=== PATIENT | female | born 1940 | race Hispanic/Latino ===

== ENCOUNTER 2016-11-11 10:41 | Emergency (ER) | payer MEDICARE, MEDICAID, OTHER ==
[2016-11-11 10:51] VITALS: BMI 21.2
[2016-11-11 10:53] VITALS: BP 120/59; PULSE 87; RESP 18; TEMP 97.7; O2SAT 95
--- NOTE | 2016-11-11 11:22 | ED PDOC ---
HPI: Eye Injury/Pain Time Seen by Provider: 11/11/16 11:19 Chief Complaint (Provider): eye discharge History Per: Patient (76 y/o here with increased right eye drainage. Has h/o ectropian and has followed with ophthalmology. Denies any prululent discharge. Does not use contact lens but has glasses.) Past Medical History Reviewed: Historical Data, Nursing Documentation, Vital Signs Vital Signs: Last Vital Signs Temp 97.7 F 11/11/16 10:51 Pulse 87 11/11/16 10:51 Resp 18 11/11/16 10:51 BP 120/59 L 11/11/16 10:51 Pulse Ox 95 11/11/16 10:51 - Family History Family History: States: No Known Family Hx - Home Medications Home Medications: Ambulatory Orders Medication Instructions Recorded Cephalexin [cephalexin] 500 mg PO QID #20 cap 08/24/15 Erythromycin 0.5% [Ilytocin] 0.5 gm RIGHTEYE BID #1 tube 11/11/16 Glycerin/Propylene Glycol 1 - 2 drop BOTHEYES TID PRN #1 11/11/16 [Artificial Tears Drops] bottle - Allergies Allergies/Adverse Reactions: Allergies Allergy/AdvReac Type Severity Reaction Status Date / Time No Known Allergies Allergy Verified 10/07/14 13:07 Review of Systems ROS Statement: Except As Marked, All Systems Reviewed And Found Negative Eyes: Positive for: Other (eye discharge) Physical Exam - Reviewed Nursing Documentation Reviewed: Yes Vital Signs Reviewed: Yes (visual acuity 20/30 L 20/30 R 20/30 bilate (without glasses)) - Physical Exam Appears: Positive for: Well, Non-toxic, No Acute Distress Head Exam: Positive for: ATRAUMATIC, NORMAL INSPECTION, NORMOCEPHALIC Skin: Positive for: Normal Color, Warm, DRY Eye Exam: Positive for: EOMI, PERRL. Negative for: Normal appearance (right lower eyelid ectropion; ), Conjunctival injection ENT: Positive for: Normal ENT Inspection Neck: Positive for: Normal, Painless ROM Cardiovascular/Chest: Positive for: Regular Rate, Rhythm Respiratory: Positive for: CNT, Normal Breath Sounds Gastrointestinal/Abdominal: Positive for: Normal Exam, Bowel Sounds, Soft Back: Positive for: Normal Inspection Extremity: Positive for: Normal ROM Neurologic/Psych: Positive for: Alert, Oriented - ECG O2 Sat by Pulse Oximetry: 95 - Progress ED Course And Treament: tonopen: right eye Disposition - Clinical Impression Clinical Impression: Ectropion - Patient ED Disposition Is Patient to be Admitted: No - Disposition Referrals: Josh Pozo MD [Staff Provider] - Disposition: Routine/Home Disposition Time: 11:23 Condition: FAIR Prescriptions: Erythromycin 0.5% [Ilytocin] 0.5 gm RIGHTEYE BID #1 tube Glycerin/Propylene Glycol [Artificial Tears Drops] 1 - 2 drop BOTHEYES TID PRN # 1 bottle PRN Reason: Dry Eyes Instructions: Blepharitis (ED)
== END 2016-11-11 11:30 | disposition home or self-care (01) ==
LOC: H.ER 10:41
DX: H02.102 Unspecified ectropion of right lower eyelid (principal)

== ENCOUNTER 2017-02-21 10:11 | Emergency (ER) | payer MEDICARE, OTHER ==
[2017-02-21 10:12] VITALS: BMI 21.2
[2017-02-21 10:17] VITALS: BP 116/79; PULSE 84; RESP 20; TEMP 98.6; O2SAT 96
--- NOTE | 2017-02-21 11:05 | ED PDOC ---
HPI: General Adult Time Seen by Provider: 02/21/17 10:30 Chief Complaint (Nursing): Lower Extremity Problem/Injury History Per: Patient Additional Complaint(s): Pt. states for the past week she's had painful warts on the bottom of her feet greatest on the L foot. Denies trauma, fever, numbness, tingling, other injury. Past Medical History Reviewed: Historical Data, Nursing Documentation, Vital Signs Vital Signs: Last Vital Signs Temp 98.6 F 02/21/17 10:16 Pulse 84 02/21/17 10:16 Resp 20 02/21/17 10:16 BP 116/79 02/21/17 10:16 Pulse Ox 96 02/21/17 11:05 - Medical History PMH: Pneumonia - Family History Family History: States: No Known Family Hx - Home Medications Home Medications: Ambulatory Orders Medication Instructions Recorded Cephalexin [cephalexin] 500 mg PO QID #20 cap 08/24/15 Erythromycin 0.5% [Ilytocin] 0.5 gm RIGHTEYE BID #1 tube 11/11/16 Glycerin/Propylene Glycol 1 - 2 drop BOTHEYES TID PRN #1 11/11/16 [Artificial Tears Drops] bottle - Allergies Allergies/Adverse Reactions: Allergies Allergy/AdvReac Type Severity Reaction Status Date / Time No Known Allergies Allergy Verified 10/07/14 13:07 Review of Systems ROS Statement: Except As Marked, All Systems Reviewed And Found Negative Musculoskeletal: Positive for: Foot Pain Physical Exam - Physical Exam Appears: Positive for: Well, Non-toxic, No Acute Distress Skin: Positive for: Normal Color, Warm. Negative for: Rash Extremity: Positive for: Normal ROM, Other (both plantar feet with hyperkeratotic plaque) Neurologic/Psych: Positive for: Alert, Oriented. Negative for: Aphasia, Facial Droop - ECG O2 Sat by Pulse Oximetry: 96 - Progress ED Course And Treament: Pt. evaluated by podiatry resident who spoke with Dr. Marquez. Podiatry resident performed debridement of callus on L foot. Pt. has scheduled appointment with Dr. Marquez in March. Disposition - Clinical Impression Clinical Impression: Callus of foot - Patient ED Disposition Is Patient to be Admitted: No - Disposition Referrals: Roel Marquez MD [Staff Provider] - Disposition: Routine/Home Disposition Time: 13:40 Condition: STABLE Additional Instructions: FOLLOW UP WITH DR. MARQUEZ IN PREVIOUSLY SCHEDULED WITHOUT FAIL. Forms: [employer] (Kiswahili) Print Language: THAI
--- NOTE | 2017-02-21 13:12 | CP.PCM.CON ---
History of Present Illness - History of Present Illness History of Present Illness: 76 year old female with no PMH was seen in the ED for left foot pain. She states started a year ago. Denies any trauma. Has been going to her tongue and quarter stitcher, Dr. Marquez for the same problem, a painful callus of left foot. Sees Dr. Marquez twice a year but states could not get an appointment until March so came here today instead. Rate pain 10/10 and localized at plantar forefoot. Describes the pain as a stabbing pain. Worse with ambulation. Has been soaking feet without helping. Presents today with sneakers and socks. Denies n/v/sob/cp/ chills or f. PMH: denies Meds: denies Allergies: NKDA PSH: denies SH: denies smoking, alcohol or elicited drug use FH: denies Past Patient History - Infectious Disease Hx of Infectious Diseases: None - Past Social History Smoking Status: Never Smoked - PULMONARY Hx Pneumonia: Yes - HEENT Hx Cataracts: Yes - PSYCHIATRIC Hx Substance Use: No - SURGICAL HISTORY Hx Cataract Extraction: Yes - ANESTHESIA Hx Anesthesia: Yes Hx Anesthesia Reactions: No Meds Allergies/Adverse Reactions: Allergies Allergy/AdvReac Type Severity Reaction Status Date / Time No Known Allergies Allergy Verified 10/07/14 13:07 - Medications Medications: Current Medications Acetaminophen (Tylenol 325mg Tab) 650 mg PO STAT STA Stop: 02/21/17 12:56 Physical Exam - Constitutional Appears: Well, Non-toxic, No Acute Distress - Extremities Exam Additional comments: Vasc: DP and PT 1/4 bilaterally, temperature gradient WNL, BREAKDOWN MAN <4 seconds x10, no edema noted Ortho: MM is 4/5 secondary to age, moderate pain with palpation of sub met 4 L, hammertoes x10 bilaterally, with cavus foot type Neuro: gross sensation intact bilaterally Derm: hyperkeratotic lesion located at sub met 4 plantarly, no open lesion, no erythema, no clinical signs of infection - Neurological Exam Neurological exam: Alert, Oriented x3 - Psychiatric Exam Psychiatric exam: Normal Affect, Normal Mood Results - Vital Signs Recent Vital Signs: Last Vital Signs Temp 98.6 F 02/21/17 10:16 Pulse 84 02/21/17 10:16 Resp 20 02/21/17 10:16 BP 116/79 02/21/17 10:16 Pulse Ox 96 02/21/17 11:05 Assessment & Plan - Assessment and Plan (Free Text) Assessment: 76 year old female presents to ED for painful sub met 4 callus secondary to pressure and foot type Plan: Patient examined and seen in the ED Chart, labs, and vitals reviewed- afebrile Discussed the plan in detail with attending Dr. Marquez Hyperkeratotic lesion at sub met 4 is debrided using a blade #15 until healthy epithelial layer is exposed. Patient tolerated the procedure well with no complications. Patient told to follow up w/ Dr. Marquez in office Thank you for the consult
== END 2017-02-21 13:54 | disposition home or self-care (01) ==
LOC: H.ER 10:11 → SUPCPDRO 10:11 → H.ER 13:54
DX: L84 Corns and callosities (principal)

== ENCOUNTER 2017-07-31 08:07 | Emergency (ER) | payer MEDICARE, OTHER ==
[2017-07-31 08:26] VITALS: BMI 22.1
[2017-07-31 08:27] VITALS: BP 140/78; PULSE 86; RESP 16; TEMP 99; O2SAT 94
--- NOTE | 2017-07-31 10:14 | ED PDOC ---
Upper Extremity Pain/Injury Time Seen by Provider: 07/31/17 09:07 Chief Complaint (Nursing): Finger,Hand,&Wrist Chief Complaint (Provider): Right 3rd digit injury History Per: Patient History/Exam Limitations: no limitations Onset/Duration Of Symptoms: Days Current Symptoms Are (Timing): Still Present Additional History Per: Patient Additional Complaint(s): 76yo female with no known past medical history, presents to ED with complaints of right 3rd digit pain after she slipped and fell approximately 3 weeks ago and injured her right 3rd digit as well as her lower back. Patient is currently requesting evaluation for her finger only. The patient is right hand dominant and has pain to the right middle finger. Denies any numbness, tingling. No other complaints. Past Medical History Reviewed: Historical Data, Nursing Documentation, Vital Signs Vital Signs: Last Vital Signs Temp 99 F 07/31/17 08:26 Pulse 86 07/31/17 08:26 Resp 16 07/31/17 08:26 BP 140/78 07/31/17 08:26 Pulse Ox 94 L 07/31/17 08:26 - Medical History PMH: No Chronic Diseases, Pneumonia - Surgical History Surgical History: No Surg Hx - Family History Family History: States: No Known Family Hx - Home Medications Home Medications: Ambulatory Orders Medication Instructions Recorded Cephalexin [cephalexin] 500 mg PO QID #20 cap 08/24/15 Erythromycin 0.5% [Ilytocin] 0.5 gm RIGHTEYE BID #1 tube 11/11/16 Glycerin/Propylene Glycol 1 - 2 drop BOTHEYES TID PRN #1 11/11/16 [Artificial Tears Drops] bottle - Allergies Allergies/Adverse Reactions: Allergies Allergy/AdvReac Type Severity Reaction Status Date / Time No Known Allergies Allergy Verified 07/31/17 08:43 Review of Systems Musculoskeletal: Positive for: Other (right 3rd digit pain) Physical Exam - Reviewed Nursing Documentation Reviewed: Yes Vital Signs Reviewed: Yes - Physical Exam Appears: Positive for: Non-toxic, No Acute Distress Head Exam: Positive for: ATRAUMATIC, NORMAL INSPECTION, NORMOCEPHALIC Extremity: Positive for: Tenderness (tenderness to right MIP and DIP joints. Poorly healing abrasion noted to superior proximal knuckle with a scab, no active bleeding or discharge. Porximal joint on right 3rd digit and well as rest of right hand non-tender.). Negative for: Deformity, Swelling Comments: Patient is refusing any back exam or other evaluation; only requesting assessment of her right 3rd digit. - ECG O2 Sat by Pulse Oximetry: 94 (RA) Medical Decision Making Medical Decision Making: Impression: Right 3rd digit injury Plan: -- XR Right 3rd digit Time: 0935 XR reviewed, questionable old fracture to DIP join of right 3rd digit. Time: 1005 Bacitracin applied to wound and splint placed as well. Patient given instructions for follow up with the hand specialist. Stable for discharge home. Scribe Attestation: Documented by Jada Singh, acting as a scribe for Quinton Clifford DO. Provider Scribe Attestation: All medical record entries made by the Scribe were at my direction and personally dictated by me. I have reviewed the chart and agree that the record accurately reflects my personal performance of the history, physical exam, medical decision making, and the department course for this patient. I have also personally directed, reviewed, and agree with the discharge instructions and disposition. Disposition - Clinical Impression Clinical Impression: Finger injury - Disposition Referrals: Toni Montesinos MD [Medical Doctor] - Disposition: Routine/Home Disposition Time: 10:05 Condition: STABLE Additional Instructions: Use splint to finger, see hand specialist as directed. Use bacitracin to area on knuckle 3x daily for 5 days. Instructions: Abrasion (ED), Crush Injury (ED) Forms: [employer] (Malay)
--- NOTE | 2017-07-31 11:47 | RAD ---
PROCEDURE: Right Hand Radiographs. HISTORY: 3rd finger injury COMPARISON: None. FINDINGS: BONES: No acute fracture or destructive bony lesion identified. An old healed fracture of the right definite carpal bone is identified. Diffuse osteopenia suggests osteoporosis. degenerative changes seen throughout the interphalangeal joints diffusely, manifest by joint space narrowing and cortical sclerosis. Similar changes are seen in the basal joint and are mild at the navicular trapezium and navicular trapezius joints. Limited degenerative changes are questioned at the radiocarpal joints. JOINTS: Normal. No osteoarthritic changes. SOFT TISSUES: Normal. OTHER FINDINGS: None. IMPRESSION: No definite acute fracture or dislocation including the long finger right hand. Degenerative joint changes seen primarily throughout the digits and the lateral carpus as discussed above. Diffuse osteopenia suggests osteoporosis. Old boxer's fracture 5th metacarpal bone.
== END 2017-07-31 10:00 | disposition home or self-care (01) ==
LOC: H.ER 08:07
DX: S69.91XA Unspecified injury of right wrist, hand and finger(s), initial encounter (principal); W01.0XXA Fall on same level from slipping, tripping and stumbling without subsequent striking against object, initial encounter